=== PATIENT | male | born 1975 | race Caucasian/White ===

== ENCOUNTER 2021-11-03 15:51 | Emergency (ER) | payer OTHER ==
[2021-11-03] MEDS ORDERED: NAPROXEN500 MG PO (17:46)
[2021-11-03] MEDS ORDERED: CYCLOBENZAPRINE10 MG PO (17:46)
== END 2021-11-03 17:58 | disposition home or self-care (01) ==
LOC: FER 15:51
DX: M54.50 Low back pain, unspecified (principal); G89.29 Other chronic pain; Z28.310 Unvaccinated for COVID-19
CPT/HCPCS: 72110; 96372; J1100; J1885